=== PATIENT | male | born 2000 | race Caucasian/White ===

== ENCOUNTER → 2020-08-04 12:16 | Outpatient (BNVA) | payer OTHER, SELFPAY | DX: J02.9 Acute pharyngitis, unspecified (principal) | CPT/HCPCS: 87071; 87880 ==

== ENCOUNTER 2020-08-07 03:25 | Emergency (ER) | payer OTHER, SELFPAY ==
[2020-08-07 03:29] VITALS: BP 154/99; PULSE 60; RESP 18; TEMP 36.7; O2SAT 99; BMI 23.0
--- NOTE | 2020-08-07 03:38 | W.ED.GENADLT ---
HPI - General Adult General: Chief complaint: General Medical Stated complaint: throat swelling, trouble breathing Time Seen by Provider: 08/07/20 03:38 History of Present Illness: HPI narrative: 20-year-old male comes in with sore throat for the past 3 days. He states that he was started on an antibiotic, amoxicillin and he has not gotten better. He has been having ear pain, runny nose and a sore throat. He denies any difficulty breathing with regards to his lungs. He feels like his throat is still swallowing though he is having trouble breathing. He denies chest pain. He denies fever chills. Patient did have a negative Covid test on Monday. He states he has been having some lymph nodes in his neck but states those are better. Onset (ago): day(s) (3) Location: mouth (Throat) Radiation: non-radiation Severity: moderate Quality: sharp Pain Consistency: constant Relieving factors: none Associated symptoms: Reports rash (Patient states he has a rash on his face that he thinks is due to the mask.); Deny chest pain, cough, diaphoresis, decreased appetite, dyspnea, fevers/chills, nausea, palpitations, short of breath or vomiting Treatments prior to arrival: none Review of Systems Const: Reports: body aches; Denies: fever(s), chills, night sweats or diaphoresis ENMT: Reports: throat pain, enlarged tonsils, odynophagia, ear or mastoid pain, nasal discharge and nasal congestion; Denies: swelling of lips/tongue, bleeding gums, dry mouth, ear discharge or nasal obstruction Card: Denies: chest pain, palpitations, dyspnea on exertion or orthopnea Resp: Denies: dyspnea, productive cough, non-productive cough, pain on inspiration or chest congestion GI: Denies: abdominal pain, nausea or vomiting Musc: Denies: neck pain Skin/Breast: Reports: rash (Patient states he has a rash on his face that he thinks is due to the mask.) PFS ED PFSH: Social History (Updated 08/04/20 @ 12:06 by Lien Taylor LPN) Smoking and tobacco status: never smoked Alcohol intake: former Marital status: Single Current occupation: [employer] Current gender identity: Female Physical Exam Narrative: EXAM NARRATIVE: 20-year-old male appears to be in no acute distress. Const: COMMON NORMALS: no acute distress, average body habitus, patient oriented x3, no limitations, healthy appearing, alert and well nourished HENMT: COMMON NORMALS: normocephalic, atraumatic, external ears normal, EAC's normal, TM's normal bilaterally, Normal external nose present, Normal nasal mucous membranes and turbinates present and moist oral mucous membranes HEAD & SCALP: normal to inspection, normocephalic and atraumatic FACE & SINUS: sinuses nontender; no sinus tenderness NOSE: Normal external nose present, Normal nares present, Normal nasal mucous membranes and turbinates present and Nasal discharge present clear EXTERNAL EAR: Yes external ears normal and Yes external ear abnormal EXTERNAL AUDITORY CANAL: EAC's normal TYMPANIC MEMBRANE: TM's normal bilaterally MOUTH: Normal oral and palatal mucosa present, tongue normal and moist mucous membranes abnormal THROAT: uvula midline and abnormal tonsil (Significant erythema, swelling with purulent drainage) bilateral Eye: COMMON NORMALS: Equal, round and reactive pupils present, EOMs intact bilaterally and conjunctivae normal CONJUNCTIVA: Yes conjunctivae normal Neck/C-Spine: COMMON NORMALS: full ROM GENERAL: Yes normal visual inspection and Yes lymphadenopathy Lymphadenopathy location: submandibular (Mild tenderness noted) Resp: COMMON NORMALS: normal respiratory effort, No retractions, No use of accessory muscles and clear to auscultation bilaterally EFFORT & INSPECTION: Yes able to speak in complete sentences AUSCULTATION: clear to auscultation bilaterally Cardio: COMMON NORMALS: regular rate and regular rhythm RATE: regular rate RHYTHM: regular rhythm GI: COMMON NORMALS: Normal to inspection, nondistended, normoactive bowel sounds present, Soft to palpation and No hepatosplenomegaly present; negative for non-tender (Mild diffuse tenderness noted, no rebound or guarding noted.) PALPATION: Yes Soft to palpation, No Firmness to palpation present (GI), Yes Tenderness to palpation present (GI), No Guarding due to palpation present (GI), No Rigid due to palpation, Yes No hepatosplenomegaly present, No Hepatosplenomegaly present and No Hepatomegaly present Neuro: COMMON NORMALS: patient oriented x3 SENSORIUM/ORIENTATION: Yes alert Course Vital Signs: Vital signs: Vital Signs Temperature 98.1 F 08/07/20 03:29 Pulse Rate 60 08/07/20 03:29 Respiratory Rate 18 08/07/20 03:29 Blood Pressure 154/99 08/07/20 03:29 Pulse Oximetry 99 08/07/20 03:29 MDM - General Adult Lab Data: Labs: Lab Results 08/07/20 Range/Units 04:07 Monoscreen Postitve H (Negative) Discharge Plan Discharge Patient Disposition: Home Clinical Impression: Pharyngitis due to infectious mononucleosis Condition: Stable Prescriptions: No Action amoxicillin 500 mg capsule 500 mg PO BID 10 Days Qty: 20 RF: 0 Discharge Orders: Discharge ED (Routine); Ordered 08/07/20 Ordered By: Mayco Adorno Discharge Diet: Clear Liquid Discharge Activity: Limit activity as instructed and May return to work/school without restrictions Patient Instructions: Infectious Mononucleosis Activity Restrictions/Additional Instructions: No contact sports or exertion until cleared by your physician. Recommendations are for a minimum of 4 weeks after illness onset. Please take [id number] liquid Tylenol and liquid ibuprofen alternating every 4 hours as needed. Coding Level of Care Code ED [employer] for Raheem Fwsascha Exam Detailed
[2020-08-07 05:03] VITALS: BP 124/78; PULSE 89; RESP 16; O2SAT 99
== END 2020-08-07 05:04 | disposition home or self-care (01) ==
PROVIDERS: Emergency Provider Emergency Medicine
DX: B27.90 Infectious mononucleosis, unspecified without complication (principal)
CPT/HCPCS: 12345; 86308; 99281

== ENCOUNTER 2021-02-11 08:31 | Emergency (ER) | payer OTHER, SELFPAY ==
[2021-02-11 08:48] VITALS: BP 131/67; PULSE 68; RESP 18; TEMP 37.5; O2SAT 99; BMI 24.8
--- NOTE | 2021-02-11 08:54 | ED_ITS ---
HPI - Eye Problem General: Chief complaint: Eye Problems Stated complaint: LEFT EYE PAIN Time Seen by Provider: 02/11/21 08:39 Source: patient Mode of arrival: ambulatory Limitations: no limitations History of Present Illness: HPI Narrative: Patient is a nice 20-year-old male who presents to ED today for evaluation of a left eye injury. Patient tells me he was mowing yesterday wearing protective glasses when he felt something fly over the glasses and into his eye. He is on sure whether this was grass, dust, or possibly a small anay of gravel. He states since that time he has noticed a small amount of pain to the left eye and states that it intermittently nguyen. He denies any visual changes. No fb sensation but states it feels scratchy. Tetanus UTD. chief complaint: eye pain Onset (ago): day(s) (yesterday) Onset description: sudden Duration: constant Location: left eye Eye Symptoms: redness, pain and other (watering) Place: work Mechanism: direct trauma (mowing grass) Severity: mild Associated symptoms: Reports no associated symptoms Treatments Prior to Arrival: irrigated eye Related Data: Patient tetanus UTD: Yes Review of Systems Eyes: Reports: eye discomfort, eye redness and increased production of tears; Denies: change in vision, blurry vision, blind spots, photophobia, eye discharge, floaters or seeing flashes [facility] ED PFSH: Social History (Updated 08/04/20 @ 12:06 by Lien Taylor LPN) Smoking and tobacco status: never smoked Alcohol intake: former Marital status: Single Current occupation: [employer] Current gender identity: Female Physical Exam Const: COMMON NORMALS: no acute distress, average body habitus, patient oriented x3, no limitations, healthy appearing, alert and well nourished Eye: COMMON NORMALS: Equal, round and reactive pupils present and EOMs intact bilaterally GENERAL EYE: normal light reflex VISUAL ACUITY: Yes acuity normal VISUAL JOYNER: No peripheral vision loss ALIGNMENT: Yes alignment normal PERIORBITAL: periorbital findings normal EYELID: eyelids normal CONJUNCTIVA: Yes conjunctival abnormal positive left (mild injection) SCLERA: sclerae normal CORNEA: Yes fluorescein used (small central and inferior abrasion) PUPIL: Yes Equal, round and reactive pupils present DIRECT OPHTHALMOSCOPY: Yes normal light reflex Neuro: COMMON NORMALS: patient oriented x3 SENSORIUM/ORIENTATION: Yes alert Course Vital Signs: Vital signs: Vital Signs Temperature 99.5 F 02/11/21 08:48 Pulse Rate 68 02/11/21 08:48 Respiratory Rate 18 02/11/21 08:48 Blood Pressure 131/67 02/11/21 08:48 Pulse Oximetry 99 02/11/21 08:48 MDM - Eye Problem MDM Narrative: Medical decision making narrative: Patient with minor corneal abrasions. No globe injury. Treated with erythromycin ointment and will follow up with Worker's Comp. Return to ED precautions given. Discharge Plan Discharge Patient Disposition: Home Clinical Impression: Corneal abrasion Qualifiers: Encounter type: initial encounter Laterality: left Qualified Code(s): S05.02XA - Injury of conjunctiva and corneal abrasion without foreign body, left eye, initial encounter Condition: Stable Prescriptions: New erythromycin 5 mg/gram (0.5 %) ointment 1 applic ophthalmic (eye) Q4H 7 Days Qty: 1 RF: 0 Discharge Orders: Discharge ED (Routine); Ordered 02/11/21 Ordered By: Bernarda Weinstein Referrals: Saulo Armstrong [Primary Care Provider] - Patient Instructions: Corneal Abrasion (ED) Activity Restrictions/Additional Instructions: As we discussed please follow-up with Worker's Comp. as instructed. You need to return to the emergency department for worsening or not improving symptoms, visual changes, or any other concerns you may have. Coding Level of Care Code ED Pest Control Worker for Raheem Bender
[2021-02-11] MEDS: fluorescein 1 mg Strip EYE-LEFT (09:32)
[2021-02-11] MEDS: eye irrigation 30 mL Btl EYE-LEFT (09:33)
[2021-02-11] MEDS: tetracaine 0.5% Op Soln 4 mL Btl 1 DROP EYE-LEFT (09:33)
[2021-02-11] MEDS: erythromycin Op Oint 1 gm 1 APPLIC EYE-LEFT (09:34)
== END 2021-02-11 09:39 | disposition home or self-care (01) ==
PROVIDERS: Emergency Provider Physician Assistant; PCP Family Medicine
DX: S05.02XA Injury of conjunctiva and corneal abrasion without foreign body, left eye, initial encounter (principal); Z87.891 Personal history of nicotine dependence; X58.XXXA Exposure to other specified factors, initial encounter
CPT/HCPCS: 99283